=== PATIENT | female | born 1990 | race Caucasian/White ===

== ENCOUNTER → 2018-07-02 | Outpatient (CLI) | payer BC ==
[~2018-07-02] MED LIST: ADRENAL PO; ALBAPLEX PO; ARGINEX PO; BCP TD; BLACK CURRENT SEED PO; CLARITIN; DIFLUCAN; FLAGYL500 MG PO; FLONASE NASAL S16 GM NS; HYPOTHALAMUS PMG PO; IMIQUIMOD5% TP; MACRODANTIN50 MG/CA1 PO; NORCO 325 MG-7.1 TAB PO; PHARMASSURE PO; SYMPLEX F PO; TERCONAZOLE0.4% VG; VITAMIN B 12; ZOLOFT; [UNRECOGNIZED DRUG - OTHER] PO; [UNRECOGNIZED DRUG - OTHER] PO
== END ==
LOC: BHSO 08:48
DX: F31.81 Bipolar II disorder (principal)

== ENCOUNTER → 2018-08-06 | Outpatient (CLI) | payer BC | LOC: BHSO 10:37 | DX: F31.81 Bipolar II disorder (principal) | CPT/HCPCS: G0463 ==

== ENCOUNTER → 2018-09-10 | Outpatient (CLI) | payer BC | LOC: BHSO 15:45 | DX: F31.81 Bipolar II disorder (principal) | CPT/HCPCS: G0463 ==

== ENCOUNTER → 2018-09-29 | Outpatient (CLI) | payer BC | LOC: BHSO 09:40 | DX: F31.81 Bipolar II disorder (principal) | CPT/HCPCS: G0463 ==

== ENCOUNTER → 2018-10-15 | Outpatient (CLI) | payer BC | LOC: BHSO 14:15 | DX: F31.81 Bipolar II disorder (principal) | CPT/HCPCS: G0463 ==